=== PATIENT | female | born 1940 | race Caucasian/White ===

== ENCOUNTER 2021-03-23 13:20 | Inpatient (IN) | payer MEDICARE, OTHER ==
[~2021-03-23] VITALS: Ht 162.6 cm; Wt 59.0 kg
[2021-03-23] MEDS: BLOOD SUGAR DIAGNOSTIC 1 EACH STRIP IN SCH (00:20)
[2021-03-23] MEDS: PIPERACILLIN /TAZOBACTAM 3.375 G in IV D5W 50 ML IV SCH (03:00)
--- NOTE | 2021-03-23 13:28 | NUR ---
DR MCCLELLAND AT BEDSIDE
--- NOTE | 2021-03-23 13:32 | NUR ---
BIB RA 99 FROM [facility], [place] FOR LOW O2SAT AND HYPOTENSION, PER REPORT O2 SAT AT 93% ON 3LPM O2 AND BP OF 85/64. REPORTED COVID +. TO ER BED 8, HOOKED TO CHAIR FRAME BUILDER. CHANGED TO HOSP [facility]OWN.
--- NOTE | 2021-03-23 13:59 | NUR ---
MOVE SHEET SUBMITTED AND CALLED FOR TELE BED.
[2021-03-23] MEDS ORDERED: IV NS 0.9% 1,000 ML IV ONE (14:00)
--- NOTE | 2021-03-23 14:13 | NUR ---
HEAD TENNIS PROFESSIONAL AT BEDSIDE
--- NOTE | 2021-03-23 14:13 | NUR ---
WALTER IS SON [phone] Simpl[employer] PHONE
--- NOTE | 2021-03-23 14:20 | NUR ---
PATIENT NOT ABLE TO PROVIDE URINE SAMPLE AT THIS TIME.
[2021-03-23] MEDS ORDERED: OCTR50DI IJ (14:28)
[2021-03-23] MEDS ORDERED: [UNRECOGNIZED DRUG - CODE] PO (14:28)
[2021-03-23] MEDS ORDERED: HEPA100D33 SUBCUT (14:28)
[2021-03-23] MEDS ORDERED: ZINC220C6 PO (14:28)
[2021-03-23] MEDS ORDERED: BISA10SU11 RC (14:28)
[2021-03-23] MEDS ORDERED: ACET325T53 PO (14:28)
[2021-03-23] MEDS ORDERED: METO50TA16 PO (14:28)
[2021-03-23] MEDS ORDERED: IPRA3AMP23 IH (14:28)
[2021-03-23] MEDS ORDERED: [UNRECOGNIZED DRUG - CODE] PO (14:28)
[2021-03-23] MEDS ORDERED: INSU100V39 SQ (14:28)
[2021-03-23] MEDS ORDERED: CHOL200013 PO (14:28)
[2021-03-23] MEDS ORDERED: SUCR1TAB PO (14:28)
[2021-03-23 14:38] LABS: BASOPHILS # (AUTO) 0.1 K/uL (0.0-0.2); BASOPHILS % (AUTO) 0.6 % (0.0-2.0); HEMATOCRIT 36 % (33-45); HEMOGLOBIN 11.4 g/dL (11.5-14.8); MEAN CORPUSCULAR HGB CONC 32 g/dl (31.0-36.0); MEAN CORPUSCULAR VOLUME 88 fL (82-100); MONOCYTES # (AUTO) 0.4 K/uL (0.1-1.30); MONOCYTES % (AUTO) 4.6 % (2.0-12.0); NEUTROPHILS # (AUTO) 6.6 K/uL (1.8-8.9); NEUTROPHILS % (AUTO) 81.8 % (43.0-81.0); PLATELET COUNT (AUTO) 117 K/uL (150-450); RED BLOOD CELL COUNT(AUTO) 4.06 MIL/uL (4.0-5.2)
[2021-03-23 14:55] LABS: D-DIMER 1.92 mg/L(FEU (0.17-0.50)
[2021-03-23] MEDS ORDERED: PIPERACILLIN /TAZOBACTAM 3.375 G in IV D5W 50 ML IV ONE (15:00)
[2021-03-23 15:01] LABS: CREATINE KINASE, TOTAL 11 U/L (26-192)
--- NOTE | 2021-03-23 15:12 | NUR ---
PATIENT NOT ABLE TO PROVIDE URINE SAMPLE AT THIS TIME.
[2021-03-23] MEDS ORDERED: PIPERACILLIN /TAZOBACTAM 3.375 G VIAL IV ONE (15:19)
[2021-03-23] MEDS ORDERED: DEXAMETHASONE SOD PHOSPHATE 6 MG in IV D5W 50 ML IV ONE (15:30)
[2021-03-23] MEDS ORDERED: DEXAMETHASONE SOD PHOSPHATE 10 MG/ML VIAL ONE (15:43)
[2021-03-23 16:07] LABS: CALCIUM, SERUM 8.7 mg/dL (8.5-10.1); CARBON DIOXIDE 23 mmol/L (21-32); CHLORIDE 113 mmol/L (98-107); CREATININE 0.7 mg/dL (0.6-1.3); GLUCOSE 138 mg/dL (74-106); POTASSIUM 4.3 mmol/L (3.5-5.1); SODIUM SERUM 146 mmol/L (136-145); UREA NITROGEN, BLOOD 34 mg/dL (7-18)
[2021-03-23 16:25] LABS: ALANINE AMINOTRANSFERASE 142 U/L (12-78); ALBUMIN 1.7 g/dL (3.4-5.0); ASPARTATE AMINOTRANSFERASE 119 U/L (15-37)
[2021-03-23 17:16] LABS: ALKALINE PHOSPHATASE 379 U/L (46-116); BILIRUBIN,TOTAL 0.5 mg/dL (0.2-1.0); TOTAL PROTEIN, SERUM 5.3 g/dL (6.4-8.2)
[2021-03-23] MEDS ORDERED: IV NS 0.9% 500 ML BAG IV ONE ×2 (17:30→20:00)
--- NOTE | 2021-03-23 18:20 | NUR ---
PATTIENT NOT ABLE TO PROVIDE URINE SAMPLE AT THIS TIME. STRONGLY REFUSES STRAIGHT CATHETER. MADE AWARE
--- NOTE | 2021-03-23 18:42 | NUR ---
COVID SWAB PCR DONE AND SENT TO LAB
--- NOTE | 2021-03-23 18:42 | NUR ---
URINE SAMPLE COLLECTED AND SENT TO LAB
[2021-03-23] MEDS ORDERED: MAGNESIUM HYDROXIDE 30 ML UDC PO PRN (19:00)
[2021-03-23] MEDS ORDERED: MAG HYDROX/AL HYDROX/SIMETH 30 ML UDC PO PRN (19:00)
[2021-03-23] MEDS ORDERED: ZOLPIDEM TARTRATE 5 MG TABLET PO PRN (19:00)
[2021-03-23] MEDS ORDERED: ONDANSETRON HCL/PF 4 MG/2 ML VIAL IVP PRN (19:00)
[2021-03-23] MEDS ORDERED: DEXTROSE 50%-WATER 50 ML DISP.SYRIN IV PRN (19:00)
[2021-03-23] MEDS ORDERED: ALBUTEROL SULFATE INH 18 GM HFA.AER.AD IH PRN (19:00)
[2021-03-23] MEDS ORDERED: Z GUARD REMEDY 4 OZ OINT TP PRN (19:00)
[2021-03-23] MEDS ORDERED: HYDROCODONE/APAP 5/325MG TABLET PO PRN (19:00)
[2021-03-23] MEDS ORDERED: BISACODYL SUPP (10 MG) 10 MG/SUPP.RECT SUPP.RECT RC PRN (19:00)
[2021-03-23] MEDS ORDERED: ACETAMINOPHEN 325 MG TABLET PO PRN (19:00)
--- NOTE | 2021-03-23 19:37 | NUR ---
REPORT GIVEN TO VINITA LOPEZ FOR MIKAYLA
[2021-03-23 19:55] LABS: BILIRUBIN,URINE NEGATIVE (NEGATIVE); COLOR,URINE YELLOW (YELLOW); LEUKOCYTE ESTERASE ,URINE NEGATIVE (NEGATIVE); NITRITE, URINE POSITIVE (NEGATIVE); PH,URINE 5.5 (5.0-8.0); PROTEIN,URINE 30 mg/dl (NEGATIVE); UGLUCOSE NEGATIVE (NEGATIVE)
[2021-03-23] MEDS ORDERED: NOREPINEPHRINE 8 MG in IV NS 0.9% 250 ML IV ONE (20:00)
[2021-03-23 20:16] LABS: RBC,URINE 51-80 /HPF (0-2); WBC,URINE 0-2 /HPF (0-3)
[2021-03-23 20:17] LABS: BACTERIA,URINE 2+ /HPF (None Seen); URINE AMORPHOUS URATE Moderate /HPF (None Seen)
[2021-03-23] MEDS ORDERED: HEPARIN SODIUM, PORCINE 5000 UNITS/1 ML VIAL SQ SCH (21:00)
[2021-03-23] MEDS ORDERED: METOPROLOL TARTRATE 50 MG TABLET PO SCH (21:00)
--- NOTE | 2021-03-23 22:16 | NUR ---
CONSENTS SIGNED FOR PICC LINE
[2021-03-23] MEDS ORDERED: VANCOMYCIN 1 GM in IV D5W 250ml IV ONE (23:00)
--- NOTE | 2021-03-23 23:43 | NUR ---
[facility] [phone]
[2021-03-24] VITALS (38 sets, daily range): BP systolic 89–118; BP diastolic 57–80
[2021-03-24 00:18] LABS: ABG BASE EXCESS -5.2 mmol/L; ABG PCO2 29.5 mmHg (35.0-45.0); ABG PO2 71.8 mmHg (75.0-100.0); COHb 0.3 % (0.5-1.5); MetHb 0.3 % (0.0-1.5); O2Hb 93.9 % (94.0-97.0); SITE, ABG Right Radial; VENT MODE, BG 3 LNC
[2021-03-24] MEDS ORDERED: VANCOMYCIN 1 GM VIAL ONE (00:20)
[2021-03-24] MEDS ORDERED: PIPERACILLIN /TAZOBACTAM 3.375 G VIAL IV ONE ×2 (00:20→03:10)
[2021-03-24] MEDS ORDERED: IV NS 0.9% 250 ML IV ONE (00:25)
[2021-03-24] MEDS ORDERED: IOHEXOL-350 100 ML VIAL IV ONE (00:25)
--- NOTE | 2021-03-24 02:37 | NUR ---
ICU 257
--- NOTE | 2021-03-24 03:32 | NUR ---
REPORT GIVEN TO JESSICA SANON
--- NOTE | 2021-03-24 03:32 | NUR ---
TRANSFERRING PT TO 257 VIA ACLS
[2021-03-24] MEDS: PIPERACILLIN /TAZOBACTAM 3.375 G in IV D5W 50 ML IV SCH (04:00)
--- NOTE | 2021-03-24 04:00 | NUR ---
TOY DESIGNER ADMISSION ADMIT 80 YEAR OLD FEMALE TO ICU AT ROOM 257 ALERT ORIENTED X2-3 ADMISSION DIAGNOSIS IS LEFT LOWER LOBE PNA,VERBALLY RESPONSIVE ON 5L OXYGEN VIA NASAL CANNULA O2:90% ON LEVOPHED 0.04 MCG/KG/MIN IV SITE IS ON RIGHT UPPER ARM PICC LINE INTACT PATENT,INCONTINENT TO BOWEL/BLADDER,SAFETY MEASURE IMPLEMENT BED IN LOW POSITION AND LOCKED CONTINUE TO MONITOR.
--- NOTE | 2021-03-24 04:12 | NUR ---
RN NOTE ZOSYN 3.375MG AT 0400 AM NOT GIVEN BECAUSE CLARIFIED WITH ER PATIENT RECEIVED IT AT ER CONTINUE TO MONITOR.
[2021-03-24] MEDS: IV 1/2NS 1000 ML 1,000 ML IV PRN ×2 (04:25→18:15)
[2021-03-24] MEDS: NOREPINEPHRINE 8 MG in IV NS 0.9% 242 ML IV PRN (05:05)
[2021-03-24 05:12] LABS: BASOPHILS % (AUTO) 0.2 % (0.0-2.0); HEMATOCRIT 34 % (33-45); HEMOGLOBIN 10.8 g/dL (11.5-14.8); LYMPHOCYTES % (AUTO) 14.3 % (20.0-44.0); MEAN CORPUSCULAR HGB CONC 32 g/dl (31.0-36.0); MEAN CORPUSCULAR VOLUME 88 fL (82-100); MONOCYTES # (AUTO) 0.1 K/uL (0.1-1.30); MONOCYTES % (AUTO) 2.2 % (2.0-12.0); NEUTROPHILS # (AUTO) 5.6 K/uL (1.8-8.9); NEUTROPHILS % (AUTO) 83.3 % (43.0-81.0); PLATELET COUNT (AUTO) 145 K/uL (150-450); RED BLOOD CELL COUNT(AUTO) 3.86 MIL/uL (4.0-5.2); WHITE BLOOD COUNT (AUTO) 6.7 K/uL (4.3-11.0)
[2021-03-24 05:45] LABS: CALCIUM, SERUM 8.6 mg/dL (8.5-10.1); CARBON DIOXIDE 22 mmol/L (21-32); CHLORIDE 113 mmol/L (98-107); CREATININE 0.6 mg/dL (0.6-1.3); GLUCOSE 137 mg/dL (74-106); MAGNESIUM 1.9 mg/dL (1.8-2.4); PHOSPHORUS 3.3 mg/dL (2.5-4.9); POTASSIUM 4.1 mmol/L (3.5-5.1); SODIUM SERUM 145 mmol/L (136-145); UREA NITROGEN, BLOOD 31 mg/dL (7-18)
--- NOTE | 2021-03-24 06:00 | NUR ---
RN NOTE CALLED NURSING FACILITY [facility] CLARIFIED DIET ORDER THEY SAID PRETTY IS ON TPN WILL ENDORSE NEXT COMING SHIFT FOR CLARIFICATION OF MEDS ORDERS
--- NOTE | 2021-03-24 07:05 | NUR ---
RN OPENING NOTE RECEIVE REPORT FROM CIGARETTE MACHINE OPERATOR NURSE. PATIENT WAS ADMITTED LAST NIGHT. CURRENTLY ON LEVO DRIP AT 0.04MCG WITH BP OF 101/66. ON NC AT 5L/MIN WITH O2 SAT OF 98%. WOOD SCALER SHOWS SR. WILL VERIFY DIET ORDER WITH PRIMARY PROVIDER. PROPER ISOLATION IN PLACE. ALL SAFETY MEASURE IN PLACE. BED ON LOWEST POSITION WITH HOB ELEVATED WITH 3 SIDE RAIL UP. CALL LIGHT WITHIN REACH. WILL CONTINUE TO MONITOR.
--- NOTE | 2021-03-24 07:06 | NUR ---
RN NOTE PATIENT REMAINS ALERT ORIENTEDX2 VERBALLY RESPONSIVE ON 5L OXYGEN VIA NASAL CANNULA O2:97% IV SITE IS ON RIGHT UPPER ARM PICC LINE INTACT PATENT ON LEVOPHED 0.04 MCG/KG/MIN AND 1/2NS 75CC/HR,PATIENT EDEMA ON BILATERAL EDEMA KEPT CLEAN AND DRY,ENDORSE NEXT COMING SHIFT FOR CONTINUATION OF CARE.
[2021-03-24] MEDS: BLOOD SUGAR DIAGNOSTIC 1 EACH STRIP IN SCH ×4 (07:48→21:17)
[2021-03-24] MEDS: CHOLECALCIFEROL 1,000 UNIT TABLET (VIT D3) PO SCH (08:09)
[2021-03-24] MEDS: SUCRALFATE 1 G TABLET PO SCH ×3 (08:09→17:35)
[2021-03-24] MEDS: PANTOPRAZOLE 40 MG TABLET.DR PO SCH (08:09)
[2021-03-24] MEDS ORDERED: APIXABAN 5 MG TABLET PO SCH (09:00)
[2021-03-24] MEDS ORDERED: DEXAMETHASONE SOD PHOSPHATE 6 MG in IV D5W 50 ML IV ONE (09:00)
[2021-03-24] MEDS ORDERED: DEXAMETHASONE SOD PHOSPHATE 10 MG/ML VIAL IV ONE (09:30)
[2021-03-24] MEDS: ZOSYN IVPB 4.5 G in IV D5W 50ml IV SCH ×3 (09:56→20:29)
--- NOTE | 2021-03-24 13:18 | NUR ---
RN NOTE AT 0900 INCREASE O2 RATE VIA NC FROM 5L-6L/MIN. O2 SAT WAS 92%.02 SAT CONTINUE TO TREND DOWN. AT [address] NC WITH SIMPLE MASK WITH O2 DELIVERY AT 10/MIN. VERIFIED CHANGE WITH DR. VASQUEZ. O2 SAT IMPROVED TO 95%. AT 1030 O2 SAT TREND DOWN TO 89% INCREASE O2 TO 12L/MIN VIA SIMPLE MASK. O2 IMPROVED SLIGHTLY. O2 SAT 89-90%. INFORMED DR. TEMPLETON.
--- NOTE | 2021-03-24 13:29 | NUR ---
RN NOTE PUT IN ORDER FOR TORADOL. INFORM DR. TEMPLETON ABOUT PATIENT ALLERGY TO IBUPROFEN. OKAY TO GIVE PER DR. TEMPLETON.
[2021-03-24] MEDS ORDERED: KETOROLAC TROMETHAMINE INJ 30 MG/ML VIAL IM PRN (13:30)
--- NOTE | 2021-03-24 14:25 | NUR ---
RN NOTE PATIENT WAS PLACE ON HIGH FLOW NASAL CANULA AT 45L/MIN WITH FIO2 OF 95%.
[2021-03-24] MEDS: MORPHINE SULFATE INJ 2 MG/ML DISP.SYRIN IV PRN ×2 (15:43→23:32)
[2021-03-24] MEDS: VANCOMYCIN 1 GM in IV D5W 250 ML IV SCH (18:12)
--- NOTE | 2021-03-24 18:34 | NUR ---
RN CLOSING NOTE PATIENT HAVE BEEN REQUIRING AN INCREASE IN OXYGEN DELIVERY. CURRENTLY ON HIGHFLOW NC AT 45L/MIN WITH 95% FIO2. O2 SAT OF 90%. LEVOPHED HAVE BEEN RUNNING AT 0.04MCG/KG/MIN. MAINTAINING SYSTOLIC BLOOD PRESSURE ABOVE 90 FOR MOST OF THE DAY. DUPLEX VENEOUS OF BILATERAL LOWER EXTREMITY WAS DONE. BILATERAL DVT WAS NOTICE DURING ULTRA SOUND AND CONFIRM BY RADIOLOGIST. ELIQUIST WAS DC AND LOVENOX WAS ORDERED IN ITS PLACE BY DR. VASQUEZ. BLOOD PRESSURE HAVE BEEN MONITORED Q15MIN. PATIENT WAS ABLE TO TAKE ALL MEDICATION DURING SHIFT. ALL PILLS MEDICATION WAS CRUSH AND GIVEN WITH APPLE SAUCE. PATIENT WAS CLEANED AND BED LINEN WAS CHANGED. PAITENT IS RESTING COMFORTABLY IN BED. PROPER ISOLATION PRECAUTION IN PLACE. ALL SAFETY MEASURE IN PLACE. BED ON LOWEST POSITION WITH HOB ELEVATED AND 3 SIDE RAIL UP. CALL LIGHT WITHIN REACH. WILL CONTINUE TO MONITOR ADN ENDORCE TO SENIOR CONTROLS TECHNICIAN NURSE.
[2021-03-24] MEDS: ENOXAPARIN SODIUM 60 MG/0.6 ML DISP.SYRIN SQ SCH ×2 (20:31→21:00)
--- NOTE | 2021-03-24 21:14 | NUR ---
PT REFUSED ADMINISTRATION OF LOVENOX SHE SAID SHE HAD AN ABDOMINAL SURGERY AND SHE DOESNT WANT TO BE INJECTED THERE I OFFER IF SHE WANT THE ARM BUT SHE DOESNT WANT ALSO, I TOLD HER THE RISK AND BENEFITS OF THE MEDICATION FOR 3 X AND SHE IS REFUSING AND SO UPSET WITH ME INSISTING THE MEDICATION CHARGE NURSE MADE AWARE
[2021-03-24] MEDS: INSULIN REGULAR, HUMAN 100 UNIT/ML 3 ML VIAL SQ PRN (21:18)
[2021-03-25] VITALS (93 sets, daily range): BP systolic 88–135; BP diastolic 52–97
[2021-03-25] MEDS ORDERED: MEROPENEM 500 MG VIAL IV ONE (04:05)
[2021-03-25] MEDS: MORPHINE SULFATE INJ 2 MG/ML DISP.SYRIN IV PRN (04:40)
[2021-03-25] MEDS ORDERED: MEROPENEM 500 MG in IV NS 0.9% 50 ML IV SCH (05:00)
[2021-03-25] MEDS: IV 1/2NS 1000 ML 1,000 ML IV PRN (06:08)
--- NOTE | 2021-03-25 07:05 | NUR ---
RN NOTES RECEIVED PT ON BED, A/Ox2-3, ON HIGH FLOW O2, 45L , 95%, O2 SAT WNL, ON TELE SR HR IN 80'S , HARJINDER NON PITTING EDEMA NOTED, R UPPER ARM PICC LINE SITE CLEAN, DRY AND INTACT, NS AT 75CC/HR AND LEVO AT .04 MCG /KG/ MIN INFUSING FOR BP SUPPORT, SR UP x3, CALL LIGHT WITHIN EASY REACH , BED LOCKED AND IN LOWEST POSITION , CONTINUE TO MONITOR.
[2021-03-25] MEDS: BLOOD SUGAR DIAGNOSTIC 1 EACH STRIP IN SCH ×4 (07:44→21:43)
[2021-03-25] MEDS: SUCRALFATE 1 G TABLET PO SCH ×3 (08:16→17:22)
[2021-03-25] MEDS: PANTOPRAZOLE 40 MG TABLET.DR PO SCH (08:16)
[2021-03-25] MEDS: CHOLECALCIFEROL 1,000 UNIT TABLET (VIT D3) PO SCH (08:16)
[2021-03-25] MEDS: ENOXAPARIN SODIUM 60 MG/0.6 ML DISP.SYRIN SQ SCH ×2 (08:17→21:09)
--- NOTE | 2021-03-25 10:00 | NUR ---
RN NOTES PT REFUSED AM CARE .
[2021-03-25] MEDS: NOREPINEPHRINE 8 MG in IV NS 0.9% 242 ML IV PRN (10:44)
--- NOTE | 2021-03-25 11:00 | NUR ---
RN NOTES O2 SAT IN LOW 80'S , DR VASQUEZ NOTIFED, PT PLACED ON NONREBREATHER MASK PER DR VASQUEZ ORDER . O2 SAT UP TO LOW 90'S , CONTINUE TO MONITOR.
[2021-03-25] MEDS ORDERED: TOCILIZUMAB 400 MG in IV NS 0.9% 80 ML IV ONE ×2 (11:30→13:30)
[2021-03-25] MEDS ORDERED: MICAFUNGIN SODIUM 100 MG in IV NS 0.9% 100 ML IV SCH (12:00)
[2021-03-25] MEDS: VANCOMYCIN 1 GM in IV D5W 250 ML IV SCH (12:07)
[2021-03-25] MEDS: MEROPENEM 1 G in IV NS 0.9% 100 ML IV SCH ×2 (12:07→21:08)
[2021-03-25] MEDS ORDERED: methylPREDNISolone SOD SUCC 40 MG/ML VIAL IV ONE (13:00)
[2021-03-25] MEDS ORDERED: ACETAMINOPHEN 650 MG/20.3 ML UDC PO ONE (13:00)
[2021-03-25] MEDS ORDERED: diphenhydrAMINE HCL 50 MG/ML VIAL IV ONE (13:00)
[2021-03-25 13:13] LABS: ALBUMIN 1.7 g/dL (3.4-5.0); BILIRUBIN,DIRECT 0.2 mg/dL (0.0-0.2); BILIRUBIN,TOTAL 0.4 mg/dL (0.2-1.0); TOTAL PROTEIN, SERUM 5.3 g/dL (6.4-8.2)
--- NOTE | 2021-03-25 13:45 | NUR ---
RN NOTED , PT STILL REFUSING AM AND PM CARE .
[2021-03-25] MEDS: MICAFUNGIN SODIUM 100 MG in IV NS 0.9% 100 ML IV SCH (15:11)
--- NOTE | 2021-03-25 15:15 | NUR ---
PT REFUSED ULTRASOUND GALLBLADDER EXAM. RNHERO WAS INFORMED.
--- NOTE | 2021-03-25 16:01 | NUR ---
RN NOTES PT REFUSED U/S OF GALLBLADDER . PT INFORMED THAT HOW IMPORTANT IS TO GET U/S DONE AND FOLLOW PLAN OF CARE , PT STILL REFUSED .
--- NOTE | 2021-03-25 18:15 | NUR ---
RN NOTES PT REMAINS ON HIGH FLOW AND NONREBREATHER MASK , O2 SAT WNL, DRAWZY , EASY TO AROUSE , AGITATED AT TIMES , REFUSED MEDS AND FOOD TO TAKE , REFUSED AM AND PM CARE AND TURNING AND REPOSITIONING. WILL ENDORSE TO ORE PUNCHER NURSE FOR CONTINUITY OF CARE.
--- NOTE | 2021-03-25 19:35 | NUR ---
RN NOTE RECEIVED PATIENT IN BED, ALERT AND ORIENTED X2-3. ABLE TO MAKE NEEDS KNOWN. ON HIGH FLOW AND NONREBREATHER, O2 SAT WNL. RESPIRATIONS EVEN AND UNLABORED. DENIES ANY PAIN AT THIS TIME. IV ACCESS ON JOSEPH PICC INFUSING NS @ 75ML/HR AND LEVO @ 0.02 MCG/KG/MIN. NO S/S OF INFILTRATIONS. BED LOCKED AND IN LOWEST POSITION. CALL LIGHT WITHIN REACH. ALL NEEDS ANTICIPATED.
--- NOTE | 2021-03-25 21:35 | NUR ---
RN NOTE PATIENT O2 SATURATION NOTED 74-85%. NO S/S OF SHORTNESS OF BREATH. RT MADE AWARE, JENNIFER MADE AWARE WITH NEW ORDER FOR STAT ABG. WILL CONTINUE TO MONITOR.
[2021-03-25] MEDS: INSULIN REGULAR, HUMAN 100 UNIT/ML 3 ML VIAL SQ PRN (21:44)
--- NOTE | 2021-03-25 21:45 | NUR ---
RN NOTE JENNIFER MADE AWARE OF ABG, PO2 43.O, O2 SAT 78%. PATIENT REMAINS ALERT AND ORIENTED X3, ABLE TO MAKE NEEDS KNOWN. RN AND RT AT BEDSIDE ASKING PATIENT IN REGARDS TO INTUBATION. PATIENT STATES "I DON'T KNOW." AND IS UNABLE TO DECIDE. JENNIFER MADE AWARE.
[2021-03-25 21:48] LABS: ABG BASE EXCESS -4.3 mmol/L; ABG OXYGEN SATURATION 78.1 % (92.0-98.5); ABG PCO2 26.8 mmHg (35.0-45.0); ABG PH 7.454 (7.350-7.450); AaDO2 607.2 mmHg; COHb 0.1 % (0.5-1.5); MetHb 0.3 % (0.0-1.5); O2Hb 77.8 % (94.0-97.0); SITE, ABG Left Brachial; VENT MODE, BG HIGH FLOW NASALCANULA 95%
--- NOTE | 2021-03-25 22:32 | NUR ---
RN NOTE PATIENT O2 SAT HIGH 80'S. SPOKE TO SON WALTER IN REGARDS TO PATIENT'S CURRENT SITUATION. ASSISTED PATIENT TO FACE TIMING WITH SON WALTER. PATIENT STILL UNABLE TO DECIDE IF WHETHER TO BE INTUBATED OR NOT, ESPECIALLY IN AN EMERGENT TIME. PATIENT AND SON WALTER WANTS TO WAIT UNTIL PATIENT IS SEEN BY JENNIFER.
--- NOTE | 2021-03-25 22:50 | NUR ---
RN NOTE CHIKIS RODRIGUEZ AT BEDSIDE. PATIENT INDECISIVE. SON WALTER WANTS TO FACE TIME PT IN 30 MIN.
[2021-03-26] VITALS (75 sets, daily range): BP systolic 82–128; BP diastolic 29–81
--- NOTE | 2021-03-26 00:12 | NUR ---
RN NOTE SPOKE TO SON WALTER, PATIENT SLEEPING COMFORTABLY O2 SAT >90%. WILL ASSIST PT WHEN AWAKEN.
[2021-03-26] MEDS: IV 1/2NS 1000 ML 1,000 ML IV PRN ×3 (00:38→20:06)
[2021-03-26] MEDS: ACETAMINOPHEN 325 MG TABLET PO PRN ×3 (00:47→20:25)
--- NOTE | 2021-03-26 00:57 | NUR ---
RN NOTE PATIENT AWAKE AT THIS TIME, REQUESTING FOR TYLENOL FOR ABDOMINAL PAIN. TOLERATED TYLENOL WELL. O2 SAT 83-88%. ATTEMPTED TO CALL SON WALTER, BUT PATIENT ANGRILY SAID "NO, I WANT TO BE LEFT ALONE.". WILL CONTINUE TO MONITOR.
--- NOTE | 2021-03-26 01:25 | NUR ---
RN NOTE ABLE TO ASSIST PATIENT FOR FACE TIME WITH SON WALTER. PATIENT STATED "NO FOR INTUBATION AND OK FOR CPR.". SON WALTER AWARE. CHIKIS RODRIGUEZ MADE AWARE AND WILL PUT ORDERS.
[2021-03-26 05:03] LABS: CALCIUM, SERUM 8.8 mg/dL (8.5-10.1); CARBON DIOXIDE 19 mmol/L (21-32); CHLORIDE 112 mmol/L (98-107); CREATININE 0.9 mg/dL (0.6-1.3); GLUCOSE 101 mg/dL (74-106); PHOSPHORUS 3.6 mg/dL (2.5-4.9); POTASSIUM 3.7 mmol/L (3.5-5.1); SODIUM SERUM 142 mmol/L (136-145); UREA NITROGEN, BLOOD 30 mg/dL (7-18)
[2021-03-26 05:04] LABS: BASOPHILS % (AUTO) 0.1 % (0.0-2.0); HEMATOCRIT 31 % (33-45); IRON, SERUM 23 ug/dl (50-175); LYMPHOCYTES # (AUTO) 0.7 K/uL (0.8-4.8); LYMPHOCYTES % (AUTO) 17.5 % (20.0-44.0); MEAN CORPUSCULAR HGB CONC 32 g/dl (31.0-36.0); MEAN CORPUSCULAR VOLUME 87 fL (82-100); MONOCYTES # (AUTO) 0.2 K/uL (0.1-1.30); NEUTROPHILS # (AUTO) 2.9 K/uL (1.8-8.9); NEUTROPHILS % (AUTO) 77.4 % (43.0-81.0); PLATELET COUNT (AUTO) 147 K/uL (150-450); RED BLOOD CELL COUNT(AUTO) 3.56 MIL/uL (4.0-5.2); TOTAL IRON BINDING CAPACITY 115 ug/dl (250-450); WHITE BLOOD COUNT (AUTO) 3.8 K/uL (4.3-11.0)
[2021-03-26] MEDS: MEROPENEM 1 G in IV NS 0.9% 100 ML IV SCH ×3 (05:08→20:06)
[2021-03-26 05:15] LABS: D-DIMER 1.25 mg/L(FEU (0.17-0.50)
[2021-03-26 05:19] LABS: FERRITIN 695 ng/mL (8-388); THYROID STIMULATING HORMONE 1.033 uIU/mL (0.358-3.74)
--- NOTE | 2021-03-26 07:00 | NUR ---
RN NOTES RECEIVED PT ON BED, A/Ox2-3, ON HIGH FLOW O2, 45L , 95%, AND NONREBREATHER MASK , O2 SAT WNL, ON TELE SB HR IN 40'S , HARJINDER NON PITTING EDEMA NOTED, R UPPER ARM PICC LINE SITE CLEAN, DRY AND INTACT, NS AT 75CC/HR AND LEVO AT .02 MCG /KG/ MIN INFUSING FOR BP SUPPORT, SR UP x3, CALL LIGHT WITHIN EASY REACH , BED LOCKED AND IN LOWEST POSITION , CONTINUE TO MONITOR.
--- NOTE | 2021-03-26 07:20 | NUR ---
RN NOTE PATIENT ALERT AND ORIENTED X2-3. ON HFNC 60L 95% AND NONREBREATHER @ 15L, O2 SAT >90%. IV ACCESS ON JOSEPH PICC INFUSING 1/2 NS @ 75ML/HR AND LEVO @ 0.02 MCG/KG/MIN. NO S/S OF INFILTRATIONS. OFFERED TO CLEAN AND CHANGE LINENS, PATIENT STRONGLY REFUSED. REFUSED 6 AM VANCO TROUGH. CALLED LAB TO DRAW. BED LOCKED AND IN LOWEST POSITION. CALL LIGHT WITHIN REACH. ENDORSED TO AM SHIFT.
--- NOTE | 2021-03-26 07:26 | NUR ---
pt. is awake and alert received on high flow nasal cannula with 60 L flow / 95% fio2 with 95 - 96% spo2. Addendum: 03/26/21 at 0728 by HENOK NUÑEZ RT Amended: Links added.
[2021-03-26] MEDS: BLOOD SUGAR DIAGNOSTIC 1 EACH STRIP IN SCH ×4 (07:50→22:32)
[2021-03-26] MEDS: GLUCERNA SHAKE 237 ML CAN PO SCH ×2 (08:00→12:08)
[2021-03-26] MEDS: CHOLECALCIFEROL 1,000 UNIT TABLET (VIT D3) PO SCH (08:20)
[2021-03-26] MEDS: SUCRALFATE 1 G TABLET PO SCH ×3 (08:20→16:47)
[2021-03-26] MEDS: DEXAMETHASONE SOD PHOSPHATE 10 MG/ML VIAL IV SCH (08:20)
[2021-03-26] MEDS: ENOXAPARIN SODIUM 60 MG/0.6 ML DISP.SYRIN SQ SCH ×2 (08:21→20:12)
[2021-03-26] MEDS: PANTOPRAZOLE 40 MG TABLET.DR PO SCH (08:21)
[2021-03-26] MEDS: MORPHINE SULFATE INJ 2 MG/ML DISP.SYRIN IV PRN ×3 (08:53→20:08)
[2021-03-26] MEDS: VANCOMYCIN 1 GM in IV D5W 250 ML IV SCH (09:21)
--- NOTE | 2021-03-26 12:00 | NUR ---
RN NOTES BM x1 NOTED , PT REFUSED TO EAT , ENCOURAGED PO INTAKE ,
[2021-03-26] MEDS: MICAFUNGIN SODIUM 100 MG in IV NS 0.9% 100 ML IV SCH (13:18)
--- NOTE | 2021-03-26 15:44 | NUR ---
SW received consult for disc level of care/code status/intubation/decision maker. CHARLENE will follow-up at a later time.
--- NOTE | 2021-03-26 18:33 | NUR ---
RN NOTES PT IS ALERT/ CONFUSED AT TIMES , ON HIGH FLOW O2 AND NONREBREATHER MASK , PT TAKES OF O2 AT TIMES, IVF AT 75CC /HR RUNNING , LEVO STILL OF , BP STABLE, BM x2 NOTED, PT REFUSED CARE AT TIMES, AND REFUSED R UPPER ARM PICC LINE SITE CLEAN,DRY AND INTACT, SR UP x3, CALL LIGHT WITHIN EASY REACH , WILL ENDORSE TO HAND BENDER NURSE FOR CONTINUITY OF CARE.
--- NOTE | 2021-03-26 19:40 | NUR ---
RN OPENING NOTE REC'D PT IN BED ON HIGH FLOW 60L 95% WITH NONREBREATHER AT 15L, PT O2 SAT 93% AT THIS TIME. NO DISTRESS NOTED AT THIS TIME. PT IS SB/SR. HR 50-60. JOSEPH PICC INTACT, FLUSHED ASEPTICALLY, ASKED TO PLACE ANOTHER IV LINE, PT REFUSED BECAME AGGRESSIVE. OFFERED TO CHANGE LINENS AND DO BED BATH AT BEST TIME FOR PT, PT REFUSED CARE. SAFETY MEASURES IN PLACE. CALL LIGHT WITHIN REACH, WILL CONT TO MONITOR THROUGHOUT SHIFT.
--- NOTE | 2021-03-26 20:51 | NUR ---
RN NOTE MORPHINE PT REQUESTED PAIN MEDICATION, EXPLAINED PT HAS MORPHINE PT EXPLAINED SEVERE STOMACH PAIN. PT AGREED, WHEN MEDICATION WAS PULLED OUT AND SCANNED, AND DRAWN UP AND BROUGHT INTO PT ROOM, WHO IS PCR PENDING, PT VERBALIZED SHE WILL NOT TAKE MORPHINE DOES NOT TAKE MORPHINE. PT REQUESTS TYLENOL. TYLENOL 650MG ORDERED GIVEN. TOLERATED WELL. MORPHINE WASTED. NOTIFIED YOU RN AND SANKET LOPEZ. WILL CONT TO MONITOR.
[2021-03-26] MEDS: INSULIN REGULAR, HUMAN 100 UNIT/ML 3 ML VIAL SQ PRN (22:34)
--- NOTE | 2021-03-26 22:52 | NUR ---
RN NOTE BLOOD SUGAR, PT NOTED TO BE 74 ENCOURAGED PT TO EAT APPLE SAUCE AND DRINK 4OZ JUICE, ONLY DRANK 50%
[2021-03-27] VITALS (31 sets, daily range): BP systolic 89–121; BP diastolic 19–77
[2021-03-27] MEDS: VANCOMYCIN 1 GM in IV D5W 250 ML IV SCH ×2 (01:38→18:30)
[2021-03-27] MEDS: MEROPENEM 1 G in IV NS 0.9% 100 ML IV SCH ×3 (05:26→21:32)
[2021-03-27 06:19] LABS: BASOPHILS % (AUTO) 0.1 % (0.0-2.0); EOSINOPHILS % (AUTO) 0.1 % (0.0-6.0); HEMATOCRIT 30 % (33-45); HEMOGLOBIN 9.7 g/dL (11.5-14.8); LYMPHOCYTES # (AUTO) 0.8 K/uL (0.8-4.8); LYMPHOCYTES % (AUTO) 24.5 % (20.0-44.0); MEAN CORPUSCULAR HGB CONC 32 g/dl (31.0-36.0); MEAN CORPUSCULAR VOLUME 87 fL (82-100); MONOCYTES # (AUTO) 0.2 K/uL (0.1-1.30); MONOCYTES % (AUTO) 4.8 % (2.0-12.0); NEUTROPHILS # (AUTO) 2.2 K/uL (1.8-8.9); NEUTROPHILS % (AUTO) 70.5 % (43.0-81.0); PLATELET COUNT (AUTO) 134 K/uL (150-450); RED BLOOD CELL COUNT(AUTO) 3.45 MIL/uL (4.0-5.2); WHITE BLOOD COUNT (AUTO) 3.2 K/uL (4.3-11.0)
[2021-03-27] MEDS: ACETAMINOPHEN 325 MG TABLET PO PRN ×2 (06:20→19:50)
[2021-03-27 06:38] LABS: D-DIMER 1.67 mg/L(FEU (0.17-0.50)
--- NOTE | 2021-03-27 06:40 | NUR ---
RN NOTE- APTT CRITICAL OF APTT 92.1 NOTIFIED DIRECTOR AIRPORT OPERATIONS JENNIFER, PT IS ON LOVENOX AND POSITIVE FOR DVT BILATERAL. PER JENNIFER FOLLOW UP WITH DAY SHIFT
[2021-03-27 07:06] LABS: CARBOHYDRATE AG 19-9 6095 U/mL (0-35)
[2021-03-27 07:20] LABS: CALCIUM, SERUM 8.3 mg/dL (8.5-10.1); CREATININE 0.7 mg/dL (0.6-1.3); MAGNESIUM 1.9 mg/dL (1.8-2.4); PHOSPHORUS 2.3 mg/dL (2.5-4.9); POTASSIUM 3.1 mmol/L (3.5-5.1)
--- NOTE | 2021-03-27 07:52 | NUR ---
RN OPENING NOTES; RECEIVED PT IN BED IN SUPINE POS. A/OX3, PT HAS NO C/O PAIN AT THIS TIME. NO DISTRESS NOTED. PT ON HFM @ 60, SATING AT 92%. ALL SAFETY MEASURES RENDERED, BED LOCKED IN LOWEST POS. WITH CALL LIGHT WITHIN REACH. WILL CONTINUE TO MONITOR.
[2021-03-27] MEDS: CHOLECALCIFEROL 1,000 UNIT TABLET (VIT D3) PO SCH (08:03)
[2021-03-27] MEDS: PANTOPRAZOLE 40 MG TABLET.DR PO SCH (08:03)
[2021-03-27] MEDS: SUCRALFATE 1 G TABLET PO SCH ×3 (08:03→16:34)
[2021-03-27] MEDS: DEXAMETHASONE SOD PHOSPHATE 10 MG/ML VIAL IV SCH (08:03)
[2021-03-27] MEDS: GLUCERNA SHAKE 237 ML CAN PO SCH (08:04)
[2021-03-27] MEDS: ENOXAPARIN SODIUM 60 MG/0.6 ML DISP.SYRIN SQ SCH ×2 (08:04→21:33)
[2021-03-27 08:07] LABS: IMMUNOGLOBULIN A, SERUM 104 mg/dL (64-422); IMMUNOGLOBULIN G, SERUM 607 mg/dL (586-1602); IMMUNOGLOBULIN M, SERUM 28 mg/dL (26-217)
[2021-03-27] MEDS: BLOOD SUGAR DIAGNOSTIC 1 EACH STRIP IN SCH ×4 (08:18→21:55)
[2021-03-27] MEDS: INSULIN REGULAR, HUMAN 100 UNIT/ML 3 ML VIAL SQ PRN ×4 (08:58→21:56)
--- NOTE | 2021-03-27 08:58 | NUR ---
RN NOTES; B/S TAKEN WITH RESULT OF 75. NO COVERAGE NEEDED PER SLIDING SCALE.
[2021-03-27] MEDS: POTASSIUM CHLORIDE 20 MEQ POWDER PACKET PO SCH ×2 (10:02→11:02)
[2021-03-27] MEDS: IV 1/2NS 1000 ML 1,000 ML IV PRN (11:02)
[2021-03-27 11:07] LABS: *ANA ANTI-CENTROMERE B AB <0.2 AI (0.0-0.9); *ANA ANTI-DNA(DS) AB, QN <1 IU/mL (0-9); *ANA ANTI-JO-1 <0.2 AI (0.0-0.9); *ANA ANTICHROMATIN ANTIBODY <0.2 AI (0.0-0.9); *ANA SJOGREN'S ANTI-SS-A <0.2 AI (0.0-0.9); *ANA SJOGREN'S ANTI-SS-B <0.2 AI (0.0-0.9); *ANAANTI-SCLERODERMA-70 AB <0.2 AI (0.0-0.9); *ANASMITH AB <0.2 AI (0.0-0.9)
[2021-03-27] MEDS: MORPHINE SULFATE INJ 2 MG/ML DISP.SYRIN IV PRN (11:42)
[2021-03-27] MEDS ORDERED: POTASSIUM CHLORIDE 20 MEQ TAB.PRT.SR PO ONE (12:00)
[2021-03-27] MEDS ORDERED: NEUTRA PHOS 1 POWD.PACKET PO ONE (12:00)
--- NOTE | 2021-03-27 12:06 | NUR ---
RN NOTES; B/S TAKEN WITH RESULT OF 108. NO COVERAGE NEEDED PER SLIDING SCALE. WILL CONTINUE TO MONITOR.
[2021-03-27] MEDS: ENSURE ENLIVE 237 ML LIQUID (VANILLA) PO SCH ×2 (13:00→16:19)
[2021-03-27] MEDS: MICAFUNGIN SODIUM 100 MG in IV NS 0.9% 100 ML IV SCH (13:08)
[2021-03-27 14:07] LABS: *SPE A/G RATIO 0.8 (0.7-1.7); *SPE ALPHA-1-GLOBULIN 0.4 g/dL (0.0-0.4); *SPE BETA GLOBULIN 0.6 g/dL (0.7-1.3); *SPE M-SPIKE Not Observed g/dL (Not Observed)
--- NOTE | 2021-03-27 16:35 | NUR ---
RN NOTES; B/S TAKEN WITH RESULT OF 105. NO COVERAGE NEEDED PER SLIDING SCALE. WILL CONTINUE TO MONITOR.
--- NOTE | 2021-03-27 18:43 | NUR ---
RN CLOSING NOTES; PT A/OX3, PT ON DOUBLE SET UP, SATING AT 92%. NO SIGNS OF DISTRESS OR SOB. ALL MEDICATIONS GIVEN AND TOLERATED WELL. OFFERED TO CHANGE LINENS AND CLEAN UP PT. PT REFUSED. STATES SHE IS IN TOO MUCH PAIN. WHEN OFFERED PRN PAIN MEDICATIONS PT REFUSED. CONTINUED TO OFFER PT TO CLEAN AND CHANGE LINENS THROUGHOUT THE DAY PT CONTINUES TO REFUSE. ALL SAFETY MEASURES RENDERED, BED IN LOWEST POS, LOCKED, SIDE RAILS X3, WITH CALL LIGHT WITHIN REACH. NO SIGNIFICANT CHANGES IN PT HEALTH STATUS DURING SHIFT. WILL ENDORSE TO CHEMICAL UNIT OPERATOR RN. PT IN STABLE CONDITION.
--- NOTE | 2021-03-27 20:02 | NUR ---
RN NOTE PATIENT IN BED, ALERT AND ORIENTED X-3. ABLE TO MAKE NEEDS KNOWN. ON HIGH FLOW 60L AND 95% FIO2 AND NONREBREATHER @15L, O2 SAT 88-92%. COMPLAINED OF LEFT UPPER ABD PAIN WHEN BREATHING, ADMINISTERED TYLENOL PRN ORDERED. TOLERATED WELL. IV ACCESS ON JOSEPH PICC INFUSING 1/2 NS @ 40ML/HR, NO S/S OF INFILTRATIONS. BED LOCKED AND IN LOWEST POSITION. CALL LIGHT WITHIN REACH. ALL NEEDS ANTICIPATED.
--- NOTE | 2021-03-27 22:01 | NUR ---
RN NOTE BLOOD SUGAR 80 AT THIS TIME. NO COVERAGE NEEDED PER SLIDING SCALE ORDER. OFFERED SNACKS, AND PATIENT REFUSED.
--- NOTE | 2021-03-27 22:14 | NUR ---
RN NOTE PATIENT IS SOILED WITH URINE AT THIS TIME. OFFERED TO CLEAN, CHANGE BED LINENS, AND REPOSITION. EXPLAINED THE IMPORTANCE OF SKIN MAINTENANCE AND PATIENT STRONGLY REFUSED. PATIENT STATED, "I DON'T WANT TO BE TOUCH, I WANT TO BE LEFT ALONE.". WILL OFFER AGAIN AT A LATER TIME.
[2021-03-28] VITALS (15 sets, daily range): BP systolic 90–142; BP diastolic 49–76
--- NOTE | 2021-03-28 00:30 | NUR ---
RN NOTE RN ABLE TO CLEAN PATIENT AT THIS TIME. NOTED WITH X1 BM AND URINE. KEPT CLEAN DRY AND COMFORTABLE. TURNED AND REPOSITIONED.
[2021-03-28] MEDS: ACETAMINOPHEN 325 MG TABLET PO PRN ×4 (02:19→21:13)
[2021-03-28] MEDS: MEROPENEM 1 G in IV NS 0.9% 100 ML IV SCH ×3 (04:40→21:01)
[2021-03-28 05:53] LABS: BASOPHILS % (AUTO) 0.1 % (0.0-2.0); EOSINOPHILS % (AUTO) 0.2 % (0.0-6.0); HEMATOCRIT 38 % (33-45); HEMOGLOBIN 12.2 g/dL (11.5-14.8); LYMPHOCYTES # (AUTO) 1.1 K/uL (0.8-4.8); LYMPHOCYTES % (AUTO) 14.5 % (20.0-44.0); MEAN CORPUSCULAR HGB CONC 32 g/dl (31.0-36.0); MEAN CORPUSCULAR VOLUME 87 fL (82-100); MONOCYTES # (AUTO) 0.2 K/uL (0.1-1.30); MONOCYTES % (AUTO) 3.3 % (2.0-12.0); NEUTROPHILS # (AUTO) 6.1 K/uL (1.8-8.9); NEUTROPHILS % (AUTO) 81.9 % (43.0-81.0); PLATELET COUNT (AUTO) 255 K/uL (150-450); RED BLOOD CELL COUNT(AUTO) 4.41 MIL/uL (4.0-5.2); WHITE BLOOD COUNT (AUTO) 7.5 K/uL (4.3-11.0)
[2021-03-28 06:08] LABS: ALANINE AMINOTRANSFERASE 77 U/L (12-78); ALBUMIN 1.8 g/dL (3.4-5.0); ALKALINE PHOSPHATASE 328 U/L (46-116); ASPARTATE AMINOTRANSFERASE 48 U/L (15-37); BILIRUBIN,TOTAL 0.4 mg/dL (0.2-1.0); CALCIUM, SERUM 8.6 mg/dL (8.5-10.1); CARBON DIOXIDE 21 mmol/L (21-32); CHLORIDE 111 mmol/L (98-107); CREATININE 0.7 mg/dL (0.6-1.3); GLUCOSE 69 mg/dL (74-106); MAGNESIUM 1.9 mg/dL (1.8-2.4); PHOSPHORUS 1.6 mg/dL (2.5-4.9); POTASSIUM 3.3 mmol/L (3.5-5.1); SODIUM SERUM 142 mmol/L (136-145); TOTAL PROTEIN, SERUM 4.9 g/dL (6.4-8.2); UREA NITROGEN, BLOOD 21 mg/dL (7-18)
[2021-03-28 06:10] LABS: D-DIMER 2.03 mg/L(FEU (0.17-0.50)
--- NOTE | 2021-03-28 06:53 | NUR ---
RN NOTE PATIENT RESTING IN BED. ALERT AND ORIENTED X3. CONTINUES ON HIGH FLOW 60L AND 95% FIO2 AND NONREBREATHER @15L, O2 SAT 88-92%. IV ACCESS ON JOSEPH PICC INFUSING 1/2 NS @ 40ML/HR, NO S/S OF INFILTRATIONS. ALL NEEDS ATTENDED PROMPTLY. DUE MEDS GIVEN ORDERED. BED LOCKED AND IN LOWEST POSITION. CALL LIGHT WITHIN REACH. WILL ENDORSE TO AM SHIFT.
--- NOTE | 2021-03-28 07:30 | NUR ---
OPENING NOTE: REPORT RECEIVED FROM BIA LOPEZ. PT IS ON NON REBREATHER AND HI FLOW NASAL CANNULA 60L 95%. IVF INFUSING PER MD ORDERS IN RIGHT UPPER ARM PICC. PER REPORT PATIENT HAS BEEN REFUSING MEALS, TAKES PILLS WITH APPLESAUCE. PT IS UNVACCINATED, COVID POSITIVE. PT CHECKED ON HOURLY AND PRN BY NURSING STAFF.
[2021-03-28] MEDS: BLOOD SUGAR DIAGNOSTIC 1 EACH STRIP IN SCH ×4 (08:20→21:13)
[2021-03-28] MEDS: CHOLECALCIFEROL 1,000 UNIT TABLET (VIT D3) PO SCH (08:21)
[2021-03-28] MEDS: PANTOPRAZOLE 40 MG TABLET.DR PO SCH (08:21)
[2021-03-28] MEDS: SUCRALFATE 1 G TABLET PO SCH ×3 (08:21→17:30)
[2021-03-28] MEDS: DEXAMETHASONE SOD PHOSPHATE 10 MG/ML VIAL IV SCH (08:21)
[2021-03-28] MEDS: ENOXAPARIN SODIUM 60 MG/0.6 ML DISP.SYRIN SQ SCH ×3 (08:22→21:05)
[2021-03-28] MEDS: ENSURE ENLIVE 237 ML LIQUID (VANILLA) PO SCH ×3 (08:23→16:02)
[2021-03-28] MEDS: IV 1/2NS 1000 ML 1,000 ML IV PRN (09:01)
--- NOTE | 2021-03-28 10:09 | NUR ---
PT TRANSFERRED TO ROOM 115-2 FOR TELE VIA BED, TRANSPORTED BY HAULAGE ENGINE OPERATOR AND RN STUDENT ON MONITOR FOLLOWING PROTOCOLS. ALL PERSONAL BELONGINGS SENT WITH PATIENT. REPORT GIVEN TO HAULAGE ENGINE OPERATOR IN ICU PRIOR TO TRANSPORT.
[2021-03-28] MEDS ORDERED: POTASSIUM CHLORIDE 20 MEQ TAB.PRT.SR PO SCH (12:00)
[2021-03-28] MEDS ORDERED: K PHOS NEUTRAL 250 MG TABLET PO ONE (12:30)
--- NOTE | 2021-03-28 13:58 | NUR ---
RN NOTE CALL PHARMACY 3 TIMES REGARDING VANCOMYCIN DUE TODAY AT 1300, ITS NOT HERE TILL NOW.
--- NOTE | 2021-03-28 14:16 | NUR ---
RN NOTE PT COMPLAIN OF ABDOMINAL PAIN AND CRAMPING 09/23, TYLENOL WILL GIVEN, WILL CONTINUE TO ASSESS AND MONITOR.
[2021-03-28] MEDS: VANCOMYCIN 1 GM in IV D5W 250 ML IV SCH (14:30)
--- NOTE | 2021-03-28 15:33 | NUR ---
SW received consult for code status/intubation/decision maker. Pt. was not cooperative and refused to answer any questions regarding DNI/DNR. Pt. did stated that she makes her own decisions. Pt. did not answer any further questions.
--- NOTE | 2021-03-28 15:56 | NUR ---
RN NOTE PT COMPLAIN OF GI UPSET, DYSPHAGIA, MAALOX PROVIDED, WILL CONTINUE TO ASSESS AND MONITOR.
[2021-03-28] MEDS ORDERED: MAG HYDROX/AL HYDROX/SIMETH 30 ML UDC PO PRN (16:00)
[2021-03-28] MEDS: MICAFUNGIN SODIUM 100 MG in IV NS 0.9% 100 ML IV SCH (17:18)
--- NOTE | 2021-03-28 18:30 | NUR ---
RN NOTE PT COMPLAIN OF LLQ AB SEVER PAIN, PT ALLERGIC TO HYDROCODONE ,REPORT TO DR IRENA DAWKINS, ORDER MORPHINE 1MG, PT ALLERGIC TO HYDROCODONE, DR OSBORN AWARE, MED GIVEN PER ORDER. REASSESS,, PT CALM AND SLEEP, WILL MIKAYLA
[2021-03-28] MEDS: MORPHINE SULFATE INJ 4 MG/ML DISP.SYRIN IV PRN (18:44)
--- NOTE | 2021-03-28 19:55 | NUR ---
RN OPENING NOTE RECEIVED PATIENT IN BED A/O X 2-3, ON NON REBREATHER AND HI FLOW NASAL CANNULA 60L 98%. IV SITE NOTED ON JOSEPH PICC LINE. PATIENT COMPLAINING OF PAIN IN THE ABDOMEN REGION.PATIENT ON TELE MONITOR QIRH HR 98. ALL ISOLATION PRECAUTIONS TAKEN, AND ENVIRONMENTAL SAFETY CHECKED, CALL LIGHT WITHIN REACH.
--- NOTE | 2021-03-28 20:00 | NUR ---
RN NOTE PT IS ON NON REBREATHER AND HI FLOW NASAL CANNULA 60L 95%. IVF INFUSING PER MD ORDERS IN RIGHT UPPER ARM PICC. TAKES PILLS WITH APPLESAUCE. SAFTEY MEASURES IN PLACE, WILL ENDORSED TO NOC SHIFT
--- NOTE | 2021-03-28 21:15 | NUR ---
RN NOTE PT GLUCOSE WAS 82 - NO INSULIN TO ADMINISTER PER SLIDING SCALE - PATIENT REFUSED LEVONOX INJECTION STATING ; " I DO NOT WANT IT, IM ANXIOUS AND NERVOUS ABOUT". ATTEMPTED TO EDUCATED PATIENT ABOUT THE INJECTIONS PURPOSE AND WHY SHE NEEDS IT, SHE REFUSED AGAIN.
[2021-03-28] MEDS: INSULIN REGULAR, HUMAN 100 UNIT/ML 3 ML VIAL SQ PRN (21:40)
[2021-03-29] VITALS: BP 117/84
[2021-03-29] MEDS: MORPHINE SULFATE INJ 4 MG/ML DISP.SYRIN IV PRN (03:13)
[2021-03-29 04:00] VITALS: BP 104/82
[2021-03-29] MEDS: MEROPENEM 1 G in IV NS 0.9% 100 ML IV SCH (04:38)
[2021-03-29] MEDS: VANCOMYCIN 1 GM in IV D5W 250 ML IV SCH ×2 (06:22→07:29)
--- NOTE | 2021-03-29 06:57 | NUR ---
RN CLOSING NOTE PATIENT REMAINS IN BED, ANXIOUS AND RESTLESS FOR MOST OF THE TIME. PATIENT REMAINS ON NON REBREATHER AND HI FLOW NASAL CANNULA 60L AND FLUCTUATES IN SATURATION CONSISTENTLY. RESPIRATORY THERAPISTS ASSISTED PATIENT MULTIPLE TIMES THROUGHOUT THE NIGHT, ADJUSTING THE MASK, HELPING W/ BREATHING TECHNIQUES. ALL ISOLATION AND ENVIRONMENTAL MEASURES TAKEN. KEPT PATIENT DRY AND CLEAN THROUGHOUT THE SHIFT.WILL ENDORSE PLAN OF CARE TO ONCOMING NURSE.
[2021-03-29 07:20] LABS: BASOPHILS % (AUTO) 0.2 % (0.0-2.0); EOSINOPHILS % (AUTO) 0.3 % (0.0-6.0); HEMATOCRIT 43 % (33-45); HEMOGLOBIN 13.7 g/dL (11.5-14.8); LYMPHOCYTES # (AUTO) 1.2 K/uL (0.8-4.8); MEAN CORPUSCULAR HGB CONC 32 g/dl (31.0-36.0); MEAN CORPUSCULAR VOLUME 87 fL (82-100); MONOCYTES # (AUTO) 0.3 K/uL (0.1-1.30); MONOCYTES % (AUTO) 2.7 % (2.0-12.0); NEUTROPHILS # (AUTO) 10.4 K/uL (1.8-8.9); NEUTROPHILS % (AUTO) 86.8 % (43.0-81.0); PLATELET COUNT (AUTO) 285 K/uL (150-450); RED BLOOD CELL COUNT(AUTO) 4.92 MIL/uL (4.0-5.2)
--- NOTE | 2021-03-29 07:27 | NUR ---
RN OPENING NOTE RECEIVED PATIENT IN BED A/O X 2-3, ON ,NON REBREATHER AND HI FLOW NASAL CANNULA 60L 98%. IV SITE NOTED ON JOSEPH PICC LINE.PATIENT ON TELE MONITOR QIRH HR 98. ALL ISOLATION PRECAUTIONS TAKEN, AND ENVIRONMENTAL SAFETY CHECKED, CALL LIGHT WITHIN REACH.
[2021-03-29 08:00] VITALS: BP 110/69
[2021-03-29] MEDS: PANTOPRAZOLE 40 MG TABLET.DR PO SCH (08:11)
[2021-03-29] MEDS: BLOOD SUGAR DIAGNOSTIC 1 EACH STRIP IN SCH ×4 (08:11→21:39)
[2021-03-29] MEDS: SUCRALFATE 1 G TABLET PO SCH ×3 (08:11→16:48)
[2021-03-29] MEDS: ENSURE ENLIVE 237 ML LIQUID (VANILLA) PO SCH ×3 (08:12→16:48)
[2021-03-29] MEDS: CHOLECALCIFEROL 1,000 UNIT TABLET (VIT D3) PO SCH (08:22)
[2021-03-29] MEDS: DEXAMETHASONE SOD PHOSPHATE 10 MG/ML VIAL IV SCH (08:22)
[2021-03-29 08:24] LABS: CALCIUM, SERUM 8.9 mg/dL (8.5-10.1); CREATININE 0.8 mg/dL (0.6-1.3); POTASSIUM 3.5 mmol/L (3.5-5.1)
[2021-03-29] MEDS ORDERED: CEFEPIME 2 GM in IV D5W 100 ML IV SCH (11:30)
[2021-03-29 12:00] VITALS: BP 117/78
--- NOTE | 2021-03-29 13:45 | NUR ---
RN NOTE PT STILL IN DISTRESS, TALKED TO FAMILY REGARDING BIPAP, FAMILY MEMBER NOT AGREE DUE TO PT IS CLAUSTROPHOBIC, AND PER DR VASQUEZ PT IS NOT ABLE TO TOLERATE BIPAP, DR VASQUEZ ORDER 0.5 MG IV PUSH Q6H, AND COMFORT CARE. ADMINISTERED ATIVAN TO PT, WILL CONTINUE OF CARE AND MONITOR.
[2021-03-29] MEDS: INSULIN REGULAR, HUMAN 100 UNIT/ML 3 ML VIAL SQ PRN ×2 (13:48→21:50)
[2021-03-29] MEDS: MICAFUNGIN SODIUM 100 MG in IV NS 0.9% 100 ML IV SCH (14:12)
--- NOTE | 2021-03-29 14:54 | NUR ---
RN NOTE PT IN SOB AND DISTRESS, LABOARED BREATHING, O2SAT ON %70 AND HR 65, RT AT BED SIDE, REPORT TO DR VASQUEZ.
[2021-03-29 16:00] VITALS: BP 121/109
[2021-03-29] MEDS ORDERED: LORAZEPAM INJ 2 MG/ML VIAL IV PRN (16:00)
[2021-03-29] MEDS ORDERED: K PHOS NEUTRAL 250 MG TABLET PO ONE (16:00)
--- NOTE | 2021-03-29 16:48 | NUR ---
RT Received pt on Airvo HFNC 60L/100% + 15 LPM NRB. Pt awake and responsive beginning of shift. Repeatedly called to assess pt due to low Sp02. Pt continuously removing NRB and HFNC throughout shift, during this time pt found on Sp02 as low as 79%. RN and MD aware of pt restlessness and not being cooperative. HFNC + NRB in place at this time- will continue to monitor.
--- NOTE | 2021-03-29 16:50 | NUR ---
RN NOTE PT AT THIS TIME IS FATIGUED, O2SAT %30, RT AT BED SIDE AND CHARGE NURSE SOON NOTIFIED, UNABLE TO TAKE PO MEDICINE , CONTINUE COMFORT AND CARE AND MONITOR.
--- NOTE | 2021-03-29 17:06 | NUR ---
RN NOTE CALLED FAMILY MEMBER WALTER, AND NOTIFED REGARDING THE PT STATUS AND DESATURATION, AND ALLOWED HIM TO BE AT BEDSIDE NEXT TO PT FOR COMFORTING THE PT
--- NOTE | 2021-03-29 18:06 | NUR ---
RN CLOSING NOTE PATIENT REMAINS IN BED A/O X1, ANXIOUS AND RESTLESS FOR MOST OF THE TIME. PATIENT REMAINS ON NON REBREATHER AND HI FLOW NASAL CANNULA 60L AND FLUCTUATES IN SATURATION CONSISTENTLY. RESPIRATORY THERAPISTS ASSISTED PATIENT MULTIPLE TIMES THROUGHOUT THE NIGHT, ADJUSTING THE MASK, HELPING W/ BREATHING TECHNIQUES. ALL ISOLATION AND ENVIRONMENTAL MEASURES TAKEN. KEPT PATIENT DRY AND CLEAN THROUGHOUT THE SHIFT. PROVIDE COMFORT CARE, FAMILY MEMBER NOTIFIED, WILL ENDORSE PLAN OF CARE TO ONCOMING NURSE.
--- NOTE | 2021-03-29 19:30 | NUR ---
RN OPENING NOTE RECEIVED PATIENT IN BED A/O X1. ON TELE MONITOR. PATIENT UNABLE TO RESPOND TO ANY QUESTIONS OR STIMULI. BREATHING RAPIDLY AT TIMES. VERY PALE IN COLOR AND COLD EXTREMITIES. PATIENT IS ON NON REBREATHER AND HI FLOW NASAL CANNULA 60L AND FLUCTUATES IN SATURATION CONSISTENTLY. PATIENTS SON, NEXT TO PATIENT BEDSIDE. SON WALTER YADAV PHONE NUMBER [phone]
[2021-03-29 20:00] VITALS: BP 90/40
--- NOTE | 2021-03-29 20:34 | NUR ---
RN NOTE SPOKE WITH WALTER RYAN SON AND NOTIFIED THAT PATIENT HAS PAST AWAY. HE IS AWARE AND WILL WILL MAKE FURTHER ARRANGEMENTS NEEDED.
--- NOTE | 2021-03-29 20:51 | NUR ---
PT on HFNC 60L 100% + 15LPM NRB , pt max out on O2, will continue to monitor Addendum: 03/29/21 at 2051 by DANIELLE GUERRERO RT Amended: Links added.
[2021-03-29] MEDS: ENOXAPARIN SODIUM 60 MG/0.6 ML DISP.SYRIN SQ SCH (21:39)
--- NOTE | 2021-03-29 21:51 | NUR ---
RN NOTE NO INSULIN GIVEN PER SLIDING SCALE - BLOOD GLUCOSE IS 77
--- NOTE | 2021-03-29 21:53 | NUR ---
NOTE 2152 PATIENT FELA ON TELE MONITOR, AYANA FARRAR CALLED. PATIENT HAD NO PULSE/ NO BP, CPR INITIATED. PATIENT IS DNI. 2154 AYANA FARRAR TEAM ARRIVED 0 ER PRONOUNCED TIME OF AT 0.
--- NOTE | 2021-03-29 22:00 | NUR ---
RN NOTE PATIENT ASYSTOLE ON MONITOR. PRONOUNCED OF TIME.
--- NOTE | 2021-03-29 22:10 | NUR ---
RN NOTE SPOKE WITH , NOTIFIED PHYSCIAN THAT PATIENT HAS .
--- NOTE | 2021-03-30 | NUR ---
RN NOTE PATIENT TRANSFERRED TO [facility].
== END 2021-03-30 00:21 | DRG 871 ==
LOC: ER 13:28 → TRANSITION 03-24 00:47 → ICU 03-24 03:05 → TELE1 03-28 09:50
PROC: 02HV33Z Insertion of Infusion Device into Superior Vena Cava, Percutaneous Approach (ICD-10-PCS; 2021-03-23)
PROC: B548ZZA Ultrasonography of Superior Vena Cava, Guidance (ICD-10-PCS; 2021-03-23)
PROC: XW033H5 Introduction of Tocilizumab into Peripheral Vein, Percutaneous Approach, New Technology Group 5 (ICD-10-PCS; principal; 2021-03-25)
PROC: 5A12012 Performance of Cardiac Output, Single, Manual (ICD-10-PCS; 2021-03-29)
DX: A41.89 Other specified sepsis (principal); U07.1 COVID-19; J12.82 Pneumonia due to coronavirus disease 2019; J96.01 Acute respiratory failure with hypoxia; N17.0 Acute kidney failure with tubular necrosis; R65.21 Severe sepsis with septic shock; E44.0 Moderate protein-calorie malnutrition; E87.0 Hyperosmolality and hypernatremia; R64 Cachexia; I50.32 Chronic diastolic (congestive) heart failure; M48.50XA Collapsed vertebra, not elsewhere classified, site unspecified, initial encounter for fracture; D61.818 Other pancytopenia; I82.493 Acute embolism and thrombosis of other specified deep vein of lower extremity, bilateral; E11.9 Type 2 diabetes mellitus without complications; E27.8 Other specified disorders of adrenal gland; E88.09 Other disorders of plasma-protein metabolism, not elsewhere classified; E83.39 Other disorders of phosphorus metabolism; Z79.01 Long term (current) use of anticoagulants; Z90.411 Acquired partial absence of pancreas; I11.0 Hypertensive heart disease with heart failure; B96.89 Other specified bacterial agents as the cause of diseases classified elsewhere; M85.88 Other specified disorders of bone density and structure, other site; Z85.07 Personal history of malignant neoplasm of pancreas; Z66 Do not resuscitate; Z79.4 Long term (current) use of insulin; E87.6 Hypokalemia; B37.7 Candidal sepsis
CPT/HCPCS: 31720; 36415; 36600; 71045-TC; 80048-TC; 80053-TC; 80076-TC; 80202-TC; 81001; 82232; 82378; 82550-TC; 82728-TC; 82784; 82803-TC; 82962-TC; 83540-TC; 83605-TC; 83615-TC; 83735-TC; 83880; 84100-TC; 84155; 84165; 84443-TC; 84484-TC; 85025-TC; 85378-TC; 85385-TC; 85396; 85730-TC; 86140-TC; 86225; 86235; 86301; 86334; 86431-TC; 86706; 86803; 87040-TC; 87081-TC; 87086-TC; 87340; 93970-TC; 94799-TC; G0378; J0692; J1100; J1200; J1650; J1815; J2060; J2185; J2248; J2270; J2405; J2543; J2920; J3262; J3370; J3490; J7030; J7050; J7060; Q9967; U0003